=== PATIENT | male | born 1975 | race Two or more races ===

== ENCOUNTER 2019-09-04 21:44 | Emergency (ER) | payer OTHER ==
[~2019-09-04] VITALS: Ht 154.9 cm; Wt 54.4 kg
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
--- NOTE | 2019-09-04 22:23 | NUR ---
PATIENT IS DISCHARGED TO [facility]. PATIENT IS AMBULATORY WITH STEADY GAIT.
[2019-09-04 22:24] VITALS: BP 121/74
== END 2019-09-04 22:24 ==
LOC: ER 21:46
DX: S00.83XA Contusion of other part of head, initial encounter (principal); F17.200 Nicotine dependence, unspecified, uncomplicated; X58.XXXA Exposure to other specified factors, initial encounter; Y93.I9 Activity, other involving external motion; Y92.89 Other specified places as the place of occurrence of the external cause; Y99.8 Other external cause status